=== PATIENT | female | born 1955 | race Asian ===

== ENCOUNTER 2017-09-11 11:49 | Emergency (ER) | payer OTHER ==
[~2017-09-11] VITALS: Ht 149.9 cm; Wt 59.0 kg
[~2017-09-11 11:49] MED LIST: ASPI81 PO; CALC1TAB15 PO; METF500T6 PO
[2017-09-11 12:03] LABS: GLUCOSE,POINT OF CARE 152 MG/DL (70-110)
[2017-09-11] MEDS ORDERED: KETOROLAC TROMETHAMINE 30 MG/ML VIAL IVP ONE (12:30)
[2017-09-11] MEDS ORDERED: SODIUM CHLORIDE 0.9% 1,000 ML IV ONE (12:39)
[2017-09-11] MEDS ORDERED: DiphenhydrAMINE HCL 50 MG/ML VIAL IVP ONE (12:45)
[2017-09-11] MEDS ORDERED: METOCLOPRAMIDE HCL 5 MG/ML 2 ML VIAL IVP ONE (12:45)
[2017-09-11 14:47] VITALS: BP 139/77
== END 2017-09-11 15:19 | disposition home or self-care (01) ==
LOC: EMS 11:50
DX: R51 Headache (principal); E11.9 Type 2 diabetes mellitus without complications
CPT/HCPCS: 70450; 82962; 96361; 96374; 96375; 99284; J1200; J2765; J7030; J1885

== ENCOUNTER 2017-09-13 08:32 | Emergency (ER) | payer OTHER ==
[~2017-09-13] VITALS: Ht 152.4 cm; Wt 59.1 kg
[2017-09-13 08:43] LABS: GLUCOSE,POINT OF CARE 212 MG/DL (70-110)
[2017-09-13] MEDS ORDERED: ACETAMINOPHEN 500 MG TABLET PO ONE (10:15)
[2017-09-13] MEDS ORDERED: CYCLOBENZAPRINE HCL 10 MG TABLET PO ONE (10:15)
[2017-09-13] MEDS ORDERED: SODIUM CHLORIDE 0.9% 1,000 ML IV ONE (10:15)
[2017-09-13 10:29] LABS: BASOPHILS % (AUTO) 0.8 % (0.0-2.0); EOSINOPHILS % (AUTO) 4.5 % (1.0-6.0); HEMATOCRIT 42.5 % (36-46); HEMOGLOBIN 15.2 g/dL (12.0-16.0); LYMPHOCYTES # (AUTO) 2.3 K/uL (1.0-4.8); LYMPHOCYTES % (AUTO) 19.1 % (22.0-44.0); MEAN CORPUSCULAR HEMOGLOBIN 32.5 pg (26.0-34.0); MEAN CORPUSCULAR HGB CONC 35.8 G/dL (31.0-37.0); MEAN CORPUSCULAR VOLUME 91 fL (80-100); MONOCYTES % (AUTO) 8.3 % (2.0-9.0); NEUTROPHILS % (AUTO) 67.3 % (40.0-70.0); PLATELET COUNT (AUTO) 282 K/uL (150-450); RED BLOOD CELL COUNT(AUTO) 4.69 MIL/uL (4.00-5.20); RED CELL DISTRIBUTION WIDTH 15.2 % (11.5-14.5)
[2017-09-13 10:30] VITALS: BP 139/76
[2017-09-13 10:37] LABS: ANION GAP 6 mmol/L (8-16); CALCIUM, TOTAL 9.1 mg/dL (8.8-10.5); CARBON DIOXIDE 29 mmol/L (22-29); CHLORIDE 104 mmol/L (98-107); CREATININE 0.69 mg/dL (0.60-1.30); GLOMERULAR FILTR. RATE CALC > 60 mL/min (>60); GLUCOSE,RANDOM 137 mg/dL (70-110); POTASSIUM 4.6 mmol/L (3.5-5.1); SODIUM SERUM 139 mmol/L (136-145); UREA NITROGEN, BLOOD 11 mg/dL (7-18)
== END 2017-09-13 12:44 | disposition home or self-care (01) ==
LOC: EMS 08:33
DX: R42 Dizziness and giddiness (principal); M54.6 Pain in thoracic spine; E11.9 Type 2 diabetes mellitus without complications; Z88.6 Allergy status to analgesic agent; Z79.899 Other long term (current) drug therapy
CPT/HCPCS: 36415; 80048; 82962; 84484; 85025; 93005; 96360; 99285; J7030

== ENCOUNTER 2018-03-12 22:25 | Emergency (ER) | payer OTHER ==
[~2018-03-12] VITALS: Ht 154.9 cm; Wt 59.1 kg
[~2018-03-12 22:25] MED LIST changes: +METF-960 PO; -METF500T6 PO
[2018-03-12] MEDS ORDERED: UNK BP MED PO (22:45)
[2018-03-12 22:48] LABS: GLUCOSE,POINT OF CARE 127 MG/DL (70-110)
[2018-03-12 23:05] LABS: INFLUENZA TYPE A NEGATIVE FOR TYPE A (NEGATIVE); INFLUENZA TYPE B NEGATIVE FOR TYPE B (NEGATIVE)
[2018-03-12 23:43] VITALS: BP 119/63
[2018-03-13] MEDS ORDERED: KETOROLAC TROMETHAMINE 30 MG/ML VIAL IM ONE
== END 2018-03-13 00:15 | disposition home or self-care (01) ==
LOC: EMS 22:27
DX: K21.9 Gastro-esophageal reflux disease without esophagitis (principal); E11.9 Type 2 diabetes mellitus without complications; I10 Essential (primary) hypertension; Z79.82 Long term (current) use of aspirin; Z79.84 Long term (current) use of oral hypoglycemic drugs
CPT/HCPCS: 82962; 87804; 96372; 99283; J1885

== ENCOUNTER 2019-04-29 17:53 | Emergency (ER) | payer OTHER ==
[~2019-04-29] VITALS: Ht 152.4 cm; Wt 61.4 kg
[~2019-04-29 17:53] MED LIST changes: +UNK BP MED PO
[2019-04-29] MEDS ORDERED: ATOR20TA86 PO (18:21)
[2019-04-29 18:32] LABS: GLUCOSE,POINT OF CARE 190 MG/DL (70-110)
[2019-04-29 21:22] LABS: INFLUENZA TYPE A POSITIVE FOR TYPE A (NEGATIVE); INFLUENZA TYPE B NEGATIVE FOR TYPE B (NEGATIVE)
[2019-04-29] MEDS ORDERED: ACETAMINOPHEN 325 MG TABLET PO ONE (21:30)
[2019-04-29] MEDS ORDERED: IBUPROFEN 600 MG TABLET PO ONE (21:30)
[2019-04-29 21:32] VITALS: BP 125/65
== END 2019-04-29 22:27 | disposition home or self-care (01) ==
LOC: EMS 17:55
DX: J10.1 Influenza due to other identified influenza virus with other respiratory manifestations (principal); E11.9 Type 2 diabetes mellitus without complications; I10 Essential (primary) hypertension; Z79.84 Long term (current) use of oral hypoglycemic drugs; Z79.82 Long term (current) use of aspirin; Z79.899 Other long term (current) drug therapy
CPT/HCPCS: 87804

== ENCOUNTER 2022-06-05 09:13 | Emergency (ER) | payer OTHER ==
[~2022-06-05] VITALS: Ht 157.5 cm; Wt 59.1 kg
[~2022-06-05 09:13] MED LIST changes: +ASPI-1450 PO; -ASPI81 PO; +ATOR20TA86 PO; +METF-1211 PO; -METF-960 PO; -UNK BP MED PO
[2022-06-05 09:25] VITALS: BP 127/67
[2022-06-05] MEDS ORDERED: ACETAMINOPHEN 500 MG TABLET PO ONE (09:45)
[2022-06-05] MEDS ORDERED: LIDOCAINE 5% TRANSDERMAL PATCH TD ONE (09:45)
[2022-06-05] MEDS ORDERED: KETOROLAC TROMETHAMINE 30 MG/ML VIAL IM ONE (09:45)
[2022-06-05] MEDS ORDERED: IBUP-1492 PO (10:47)
[2022-06-05] MEDS ORDERED: LIDO700A15 TP (10:47)
[2022-06-05] MEDS ORDERED: ACET-66 PO (10:47)
== END 2022-06-05 11:18 | disposition home or self-care (01) ==
LOC: EMS 09:19
DX: M75.32 Calcific tendinitis of left shoulder (principal); M25.512 Pain in left shoulder; E11.9 Type 2 diabetes mellitus without complications; I10 Essential (primary) hypertension
CPT/HCPCS: 99283; 73030; 93005; 96372; J1885